=== PATIENT | female | born 1950 | race Caucasian/White ===

== ENCOUNTER 2021-01-11 09:34 | Emergency (ER) | payer OTHER ==
[~2021-01-11] VITALS: Ht 157.5 cm; Wt 79.8 kg
--- NOTE | ~2021-01-11 | EMS ---
[address] [address] EMS Patient Care Report Name: ELLIE BURTON Room #: REG ANNABELLE Blanton#: [id number] Admission: 01/11/21 Attend Phys: Discharge: Date of : 46 Report #: [id number] THIS REPORT FOR: //name// Report Transmitted: 01/11/2021 10:06 EMS Care Summary [facility] Incident [id number] @ 01/11/2021 08:46 Incident Location [address] [place] [address] [place] [address] Patient ELLIE BURTON Female, 70 Years 1950 Patient [address] [place] [address] [place] [address] Patient History Asthma,Dementia,Epilepsy,Hypertension (HTN),Stroke/CVA,Hyperlipidemia,Depression,Anxiety,Neuropathy,Gout,Deep Vein Thrombosis,Hypothyroidism,Type 2 Diabetes, Patient Allergies Codeine,Keflex,Dilaudid,Other drug allergy,Cardizem, Patient Medications Bactrim, Lisinopril, Norvasc, Glimepiride, Acetaminophen, Crestor, Keppra, Diclofenac, Effexor, Albuterol, Prilosec, Restoril, Klonopin, Allopurinol, Eliquis, Sumatriptan, Promethazine, Tramadol, Tylenol, Levothyroxine, Cyclobenzaprine, Chief Complaint pain in both legs Disposition Transported No Lights/[place] Dispatch Reason Sick Person Transported To [address] [place] [address] EMS Patient Care Report Name: ELLIE BURTON Room #: REG M.R.#: [id number] Admission: 01/11/21 Attend Phys: Discharge: Date of : 46 Report #: [id number] [facility] Narrative This crew arrives to find the pt laying supine on a bed inside of her room at this facility. She appears alert and in no obvious distress with SFD and facility staff on scene. The pt reports chronic pain in both knees and legs, reporting the pain increased over the previous eight weeks. She notes that she is intending to have both knees replaced. Upon waking this morning she states that she "can't take it any more" and would like to be transported to [facility] ER for evaluation. The pt received her prescribed [place] tablet at 0500 on this date, per staff. The pt has been transported frequently for similar complaints in the previous two months. She denies recent falling or trauma. At contact the pain is rated as 10/10. No further acute complaint presented. The pt is assisted to the cot from her bed, walking steadily with assistance. She is secured and moved to the ambulance without incident. No change in condition en route. The pt is moved to ER bed 2 without incident, report and care given to LIN Alexis. Initial Vitals @09:13Temp: 97.3F, @PTAP: 88,R: 20,BP: 150/83,Pain: 10/10,GCS: 15,Temp: 97.3F,SpO2: 97,Revised Trauma: 12, Impression Pain (Non-Traumatic) Timeline [facility],BP: 150/83 M,PULSE: 88,RR: 20 R,SPO2: 97 Ox,ETCO2: ,BG: ,PAIN: 10,GCS: 15, 08:44,Call Received 08:44,Psap Call 08:46,Dispatched 08:48,En Route 08:59,On Scene 09:02,At Patient 09:11,Depart Scene 09:13,BP: / M,PULSE: ,RR: R,SPO2: Ox,ETCO2: ,BG: ,PAIN: ,GCS: , 09:29,At Destination 09:47,Call Closed Disclaimer [email or web address] Copyright 2020 [employer] This EMS Care Summary contains data elements from the applicable legal record [address] [address] EMS Patient Care Report Name: ELLIE BURTON [id number] Admission: 01/11/21 Attend Phys: Discharge: Date of : 46 Report #: [id number] (which may be displayed differently). It is designed to provide pertinent information for the following purposes: continuity of care, clinical quality, and state data reporting. The complete legal record is available to ED staff and administrators of the receiving hospital in [facility]'s Patient Tracker. All data is provided "as is."
[2021-01-11 10:32] LABS: ABSOLUTE NEUTROPHILS 4.6 thou/uL (1.4-8.2); BASOPHILS 0.7 % (0.0-2.0); EOSINOPHILS 2.6 % (0.0-3.0); HEMATOCRIT 33.4 % (37.0-47.0); HEMOGLOBIN 10.7 gm/dL (12.0-15.0); LYMPHOCYTES 24.4 % (24.0-44.0); MCH 23.7 pg (26.0-34.0); MCHC 32.1 g/dL (28.0-37.0); MCV 73.9 fL (80.0-100.0); MONOCYTES 6.8 % (1.0-8.0); PLATELET COUNT 191 thou/uL (150-400); POLYS 65.5 % (36.0-66.0); RBC 4.51 mil/uL (4.20-5.00); RDW 17.7 % (10.5-14.5); WBC 7.1 thou/uL (4.0-11.0)
[2021-01-11 10:43] LABS: CALCIUM 9.5 mg/dL (8.5-10.1); CREATININE 0.7 mg/dL (0.6-1.0); POTASSIUM 3.5 mmol/L (3.5-5.1)
[2021-01-11 10:48] LABS: ALBUMIN 3.5 g/dL (3.4-5.0); TOTAL BILIRUBIN 0.2 mg/dL (0.2-1.0); TOTAL PROTEIN 7.2 g/dL (6.4-8.2)
[2021-01-11] MEDS ORDERED: CLEOCIN HCL300 MG PO (11:47)
[2021-01-11] MEDS ORDERED: NORCO5 PO (11:47)
[2021-01-11 12:11] VITALS: BP 154/86
[2021-01-11 13:18] LABS: ANISOCYTOSIS 1+; MICROCYTES 2+; PLATELET ESTIMATE NORMAL
== END 2021-01-11 12:23 | disposition home or self-care (01) ==
LOC: ER 09:34
PROVIDERS: Emergency Medicine
DX: L03.115 Cellulitis of right lower limb (principal); M79.661 Pain in right lower leg; E78.00 Pure hypercholesterolemia, unspecified; I10 Essential (primary) hypertension; Z90.710 Acquired absence of both cervix and uterus; Z88.6 Allergy status to analgesic agent; Z88.1 Allergy status to other antibiotic agents; Z88.8 Allergy status to other drugs, medicaments and biological substances; Z91.018 Allergy to other foods; Z87.891 Personal history of nicotine dependence